=== PATIENT | female | born 1940 | race Caucasian/White ===

== ENCOUNTER 2021-02-06 15:29 | Emergency (ER) | payer MEDICARE ==
[2021-02-06 21:14] LABS: BILIRUBIN Negative (Negative); BLOOD 1+ (Negative); CLARITY Turbid (Clear); COLOR Yellow (Yellow); GLUCOSE Negative (Negative); KETONE Negative (Negative); LEUKO ESTERASE 3+ (Negative); NITRITE Positive (Negative); UROBILINOGEN 0.2 E.U./dl (0.0-1.0)
[2021-02-06 21:32] LABS: BACTERIA 4+; WBC TNTC wbc/hpf (0-5)
[2021-02-06] MEDS ORDERED: MACROBID100 M1 PO (21:43)
== END 2021-02-06 22:39 ==
LOC: ED 15:29
PROVIDERS: Physician Assistant
DX: S00.93XA Contusion of unspecified part of head, initial encounter (principal); N39.0 Urinary tract infection, site not specified; Z91.040 Latex allergy status; Z88.8 Allergy status to other drugs, medicaments and biological substances; X58.XXXA Exposure to other specified factors, initial encounter; Y93.89 Activity, other specified; Y92.89 Other specified places as the place of occurrence of the external cause; Y99.8 Other external cause status

== ENCOUNTER 2021-04-09 20:44 | Emergency (ER) | payer MEDICARE ==
[~2021-04-09] VITALS: Ht 170.1 cm; Wt 68.0 kg
[~2021-04-09 20:44] MED LIST: MACROBID100 M1 PO
== END 2021-04-09 23:48 ==
LOC: ED 20:44
DX: S00.93XA Contusion of unspecified part of head, initial encounter (principal); I48.91 Unspecified atrial fibrillation; I11.0 Hypertensive heart disease with heart failure; I50.9 Heart failure, unspecified; E11.9 Type 2 diabetes mellitus without complications; Z91.040 Latex allergy status; Z79.899 Other long term (current) drug therapy; W19.XXXA Unspecified fall, initial encounter; Y93.89 Activity, other specified; Y92.89 Other specified places as the place of occurrence of the external cause; Y99.8 Other external cause status

== ENCOUNTER → 2021-04-28 | Outpatient (CLI) | payer MEDICARE, OTHER ==
[2021-04-28 13:29] LABS: CREATININE 0.51 mg/dL (0.55-1.02)
== END | disposition home or self-care (01) ==
LOC: CT 03:28
PROVIDERS: Radiology Diagnostic Radiology; ATTEND Physician Assistant Medical
DX: J90 Pleural effusion, not elsewhere classified (principal)